=== PATIENT | female | born 1975 | race African-American/Black ===

== ENCOUNTER 2022-08-13 12:20 | Emergency (ER) | payer OTHER ==
[~2022-08-13] VITALS: Ht 154.9 cm; Wt 75.3 kg
[2022-08-13] MEDS ORDERED: KETOROLAC TROMETHAMINE 30 MG/ML VIAL IV STA (13:06)
[2022-08-13] MEDS ORDERED: KETOROLAC TROMETHAMINE 30 MG/ML VIAL ONE (13:13)
[2022-08-13 14:31] VITALS: BP 127/69
== END 2022-08-13 14:37 | disposition home or self-care (01) ==
LOC: FSED 12:28
DX: R07.9 Chest pain, unspecified (principal); R94.31 Abnormal electrocardiogram [ECG] [EKG]
CPT/HCPCS: 71046; 80053; 81003; 82553; 84484; 85025; 93005; 99283; J1885